=== PATIENT | male | born 1980 | race Caucasian/White ===

== ENCOUNTER 2017-04-04 17:17 | Inpatient (IN) | payer MEDICAID, OTHER ==
[~2017-04-04] VITALS: Ht 185.4 cm; Wt 88.4 kg
[~2017-04-04 17:17] MED LIST: NO MEDS
[2017-04-04 18:09] LABS: ANION GAP 6 mmol/L (8-16); CALCIUM, TOTAL 8.8 mg/dL (8.8-10.5); CARBON DIOXIDE 30 mmol/L (22-29); CHLORIDE 103 mmol/L (98-107); GLOMERULAR FILTR. RATE CALC > 60 mL/min (>60); SODIUM SERUM 139 mmol/L (136-145); UREA NITROGEN, BLOOD 14 mg/dL (7-18)
[2017-04-04 18:15] LABS: ALANINE AMINOTRANSFERASE 42 U/L (12-78); ASPARTATE AMINOTRANSFERASE 35 U/L (15-37); BILIRUBIN,TOTAL 0.4 mg/dL (0.1-1.0); TOTAL PROTEIN, SERUM 6.8 g/dL (6.4-8.2)
[2017-04-04 18:30] LABS: BASOPHILS % (AUTO) 0.3 % (0.0-2.0); EOSINOPHILS % (AUTO) 2.5 % (1.0-6.0); HEMATOCRIT 47.9 % (41-53); HEMOGLOBIN 16.7 g/dL (13.5-17.5); LYMPHOCYTES # (AUTO) 1.7 K/uL (1.0-4.8); LYMPHOCYTES % (AUTO) 31.4 % (22.0-44.0); MEAN CORPUSCULAR HEMOGLOBIN 32.6 pg (26.0-34.0); MEAN CORPUSCULAR HGB CONC 34.9 G/dL (31.0-37.0); MEAN CORPUSCULAR VOLUME 94 fL (80-100); MONOCYTES # (AUTO) 0.5 K/uL (0.1-1.0); NEUTROPHILS # (AUTO) 3.1 K/uL (1.8-7.7); NEUTROPHILS % (AUTO) 56.8 % (40.0-70.0); PLATELET COUNT (AUTO) 234 K/uL (150-450); RED BLOOD CELL COUNT(AUTO) 5.12 MIL/uL (4.50-5.90); RED CELL DISTRIBUTION WIDTH 12.6 % (11.5-14.5); WHITE BLOOD COUNT (AUTO) 5.4 K/uL (4.5-11.0)
[2017-04-04] MEDS ORDERED: LORazepam 1 MG TABLET PO ONE (19:45)
[2017-04-04] MEDS ORDERED: TraMADol HCL 50 MG TABLET PO ONE (19:45)
[2017-04-04] MEDS ORDERED: LORazepam 2 MG TABLET PO PRN (21:30)
[2017-04-04] MEDS ORDERED: HALOPERIDOL 5 MG TABLET PO PRN (21:30)
[2017-04-05] MEDS ORDERED: INFLUENZA VIRUS VACCINE QVS 2017-18 (3YR+)/PF 60 MCG/0.5 ML SYRINGE IM ONE (01:00)
[2017-04-05] MEDS ORDERED: PNEUMOCOCCAL VACCINE POLYVALENT 0.5 ML VIAL [PPSV23] IM ONE (01:00)
[2017-04-05 01:14] VITALS: BP 123/79
[2017-04-05 08:15] VITALS: BP 133/78
[2017-04-05] MEDS: NICOTINE 14 MG/24 HOUR PATCH TD SCH (10:24)
[2017-04-05] MEDS: ACETAMINOPHEN 325 MG TABLET PO PRN (11:16)
[2017-04-05 19:01] VITALS: BP 136/74
[2017-04-05] MEDS: ZOLPIDEM TARTRATE 10 MG TABLET PO PRN (20:28)
[2017-04-06 04:50] VITALS: BP 138/88
[2017-04-06] MEDS: ACETAMINOPHEN 325 MG TABLET PO PRN (05:24)
[2017-04-06 07:54] LABS: APPEARANCE,URINE CLEAR (CLEAR); GLUCOSE, URINE (UA) NEGATIVE (NEGATIVE); KETONES,URINE NEGATIVE (NEGATIVE); LEUKOCYTE ESTERASE ,URINE NEGATIVE (NEGATIVE); OCCULT BLOOD,URINE NEGATIVE (NEGATIVE); PH,URINE 6.5 (5.0-8.0); PROTEIN,URINE NEGATIVE (NEGATIVE)
[2017-04-06 07:55] LABS: ADD UA MICROSCOPIC NO
[2017-04-06 08:15] VITALS: BP 116/70
[2017-04-06] MEDS: PARoxetine HCL 20 MG TABLET PO SCH (09:03)
[2017-04-06] MEDS: NICOTINE 14 MG/24 HOUR PATCH TD SCH (09:08)
[2017-04-06 20:29] VITALS: BP 121/82
[2017-04-07 06:37] VITALS: BP 143/72
[2017-04-07 08:15] VITALS: BP 142/78
[2017-04-07] MEDS: PARoxetine HCL 20 MG TABLET PO SCH (08:59)
[2017-04-07] MEDS: NICOTINE 14 MG/24 HOUR PATCH TD SCH (09:03)
[2017-04-07 16:30] VITALS: BP 138/82
[2017-04-07] MEDS: ZOLPIDEM TARTRATE 10 MG TABLET PO PRN (21:40)
[2017-04-08 08:36] VITALS: BP 133/68
[2017-04-08] MEDS: PARoxetine HCL 20 MG TABLET PO SCH (09:01)
[2017-04-08] MEDS: NICOTINE 14 MG/24 HOUR PATCH TD SCH (09:02)
[2017-04-08] MEDS ORDERED: PARO20TA24 PO (13:51)
== END 2017-04-08 14:30 | disposition home or self-care (01) | DRG 750 ==
LOC: EMS 17:18 → 3EI 23:42
PROVIDERS: ADMIT Psychiatry & Neurology Psychiatry; ATTEND Psychiatry & Neurology Psychiatry
PROC: 3E0234Z Introduction of Serum, Toxoid and Vaccine into Muscle, Percutaneous Approach (ICD-10-PCS; principal; 2017-04-05)
PROC: 3E0234Z Introduction of Serum, Toxoid and Vaccine into Muscle, Percutaneous Approach (ICD-10-PCS; 2017-04-05)
DX: F25.9 Schizoaffective disorder, unspecified (principal); F33.3 Major depressive disorder, recurrent, severe with psychotic symptoms; R45.851 Suicidal ideations; F15.10 Other stimulant abuse, uncomplicated; F12.90 Cannabis use, unspecified, uncomplicated; F41.9 Anxiety disorder, unspecified; K02.9 Dental caries, unspecified; F17.210 Nicotine dependence, cigarettes, uncomplicated; Z62.819 Personal history of unspecified abuse in childhood; Z23 Encounter for immunization; Z71.6 Tobacco abuse counseling; Z79.899 Other long term (current) drug therapy; Z71.51 Drug abuse counseling and surveillance of drug abuser; Z59.0 Homelessness; Z81.8 Family history of other mental and behavioral disorders
CPT/HCPCS: 90471; 99285; 99406; G0480

== ENCOUNTER 2024-05-22 00:50 | Emergency (ER) | payer MEDICAID ==
[~2024-05-22] VITALS: Ht 185.4 cm; Wt 92.0 kg
[~2024-05-22 00:50] MED LIST changes: -NO MEDS; +PARO-38 PO
[2024-05-22 01:00] VITALS: BP 123/52; PULSE 92; RESP 16; TEMP 98.2; O2SAT 100
== END 2024-05-22 01:20 ==
LOC: EMS 00:51
DX: Z02.89 Encounter for other administrative examinations (principal); F20.9 Schizophrenia, unspecified; F32.A Depression, unspecified; F10.20 Alcohol dependence, uncomplicated; F17.210 Nicotine dependence, cigarettes, uncomplicated; Z65.3 Problems related to other legal circumstances; Y90.9 Presence of alcohol in blood, level not specified
CPT/HCPCS: 99283; Z7502